=== PATIENT | male | born 1950 | race Caucasian/White ===

== ENCOUNTER 2022-03-26 10:19 | Outpatient (CLI) | payer MEDICARE, SELFPAY ==
[2022-03-26 14:04] LABS: Uric Acid* 4.9 mg/dL (2.2-8.4)
== END 2022-03-26 10:20 | disposition home or self-care (01) ==
PROVIDERS: Visit Provider Nurse Practitioner Family
DX: M79.671 Pain in right foot (principal)
CPT/HCPCS: 36415; 84550